=== PATIENT | female | born 1950 | race Caucasian/White ===

== ENCOUNTER → 2017-03-14 | Outpatient (CLI) | payer MEDICARE, OTHER ==
[~2017-03-14] MED LIST: TRAM-42 PO
--- NOTE | 2017-03-16 18:04 | Diagnostic Imaging Report ---
Bilateral screening mammogram 2D views with tomosynthesis. The current study was also evaluated with a Computer Aided Detection (CAD) system. INDICATION: Screening. No current complaints stated on the questionnaire. COMPARISON: 12/11/15 FINDINGS: The breasts are composed of heterogeneously dense parenchyma which may decrease mammographic sensitivity. There is a circumscribed nodule in the right breast slightly lateral location, smaller compared to the prior exams compatible with a cyst. Allowing for technique and positional differences, no suspicious change is seen. IMPRESSION: Dense breasts with no definite change. ACR BI-RADS Category 2: Benign findings. Result letter will be mailed to the patient. Note: At least 10% of breast cancer is not imaged by mammography. Dictated by: Dictated on workstation # [id number]
== END ==
LOC: RAD 14:08
PROVIDERS: ATTEND Obstetrics & Gynecology
DX: Z12.31 Encounter for screening mammogram for malignant neoplasm of breast (principal)
CPT/HCPCS: 77067

== ENCOUNTER → 2018-04-02 | Outpatient (CLI) | payer MEDICARE, OTHER ==
--- NOTE | 2018-04-02 15:54 | Diagnostic Imaging Report ---
INDICATION: Bulge just below the level of the umbilicus. TECHNIQUE: Multiple real time keating scale sonographic images were obtained of the pelvis transabdominally and transvaginally. CORRELATION STUDY: 12/11/2015 FINDINGS: UTERUS/ENDOMETRIUM: Uterus measures 5.1 x 3.1 x 1.9 cm. Endometrial thickness is 2 mm. The uterus and endometrium appearing unremarkable. RIGHT OVARY: Not visualized. LEFT OVARY: Not visualized. No abnormal adnexal mass lesion. No significant free pelvic fluid. IMPRESSION: 1. Unremarkable appearing pelvic ultrasound examination. Nonvisualization of the ovaries may be atrophic, owing to their position and/or obscuration by overlying bowel. Dictated by: Dictated on workstation # [id number]
== END ==
LOC: RAD 13:10
PROVIDERS: ATTEND Obstetrics & Gynecology
DX: K58.9 Irritable bowel syndrome, unspecified (principal); Z80.41 Family history of malignant neoplasm of ovary
CPT/HCPCS: 76830; 76856

== ENCOUNTER → 2018-04-12 | Outpatient (CLI) | payer MEDICARE, OTHER ==
[~2018-04-12] MED LIST changes: +CATHETER FLUSH 10 ML SYR IV PRN; +IOHEXOL 350 MG/ML 100 ML (OMNIPAQUE 350) VIAL IV ONE; +NS 100 ML (IVPB) BAG IV ONE
--- NOTE | 2018-04-12 14:59 | Diagnostic Imaging Report ---
PROCEDURE: CT abdomen and pelvis with and without contrast. TECHNIQUE: Precontrast acquisitions were acquired through the abdomen and pelvis. Multiple contiguous axial images were obtained through the abdomen and pelvis after the administration of intravenous contrast. INDICATION: Left-sided abdominal pain and left abdominal bulge. Comparison is made with prior CT from 05/28/2014. The lung bases are clear. No discrete liver mass is identified. The gallbladder is unremarkable. The pancreas and spleen are unremarkable. No adrenal mass is identified. Left kidney contains a tiny calculus consistent with nonobstructing calculus. No hydronephrosis is seen. The aorta is normal in caliber. Small and large bowel loops are normal caliber. No obstruction is seen. There is no ascites. There is diverticulosis of the sigmoid colon but no evidence of acute diverticulitis. The bladder is unremarkable. No definite abdominal or pelvic lymphadenopathy is identified. IMPRESSION: 1. Uncomplicated diverticulosis. 2. No acute abnormality is detected. Dictated by: Dictated on workstation # [id number]
== END ==
LOC: RAD 14:07
PROVIDERS: ATTEND Obstetrics & Gynecology
DX: K57.30 Diverticulosis of large intestine without perforation or abscess without bleeding (principal); K58.9 Irritable bowel syndrome, unspecified; Z80.41 Family history of malignant neoplasm of ovary
CPT/HCPCS: 74178

== ENCOUNTER → 2018-10-18 | Outpatient (CLI) | payer MEDICARE, OTHER ==
[~2018-10-18] MED LIST changes: -CATHETER FLUSH 10 ML SYR IV PRN; -IOHEXOL 350 MG/ML 100 ML (OMNIPAQUE 350) VIAL IV ONE; -NS 100 ML (IVPB) BAG IV ONE
--- NOTE | 2018-10-18 18:37 | Diagnostic Imaging Report ---
INDICATION: History of stones. COMPARISON: Exam compared with abdominopelvic CT 04/12/2018. FINDINGS: The punctate left upper pole renal calculus at earlier CT is not radiographically apparent; however owing to the overlying stool and its small size, it would not be expected to be visualized. The bowel gas pattern is unremarkable. There are degenerative changes to the spine and hips. No acute abnormality. IMPRESSION: No pathological finding revealed. Dictated by: Dictated on workstation # [id number]
== END ==
LOC: RAD 16:27
PROVIDERS: ATTEND Urology
DX: Z87.442 Personal history of urinary calculi (principal)
CPT/HCPCS: 74018

== ENCOUNTER → 2019-05-27 | Outpatient (CLI) | payer MEDICARE, OTHER ==
--- NOTE | 2019-05-27 09:51 | Diagnostic Imaging Report ---
PROCEDURE: MR imaging of the brain without contrast. TECHNIQUE: Multiplanar, multisequence MR imaging of the brain was performed without contrast. INDICATION: Right eye disturbances. Possible ocular migraine. COMPARISON: MRI brain on 11/17/2008. Findings: No acute ischemia, mass, or hemorrhage. Nonspecific T2/FLAIR hyperintense signal seen in the periventricular and subcortical white matter. The ventricles, cortical sulci, and basilar cisterns are symmetric and unremarkable. The sellar and suprasellar regions have a normal appearance. The brainstem and posterior fossa are unremarkable. The paranasal sinuses demonstrate normal signal characteristics. A small left mastoid effusion is present. The globes and orbits are symmetric and unremarkable. The scalp and calvarium have a normal appearance. Impression: 1. No acute ischemia, mass, or hemorrhage. 2. Nonspecific T2/FLAIR hyperintense signal in the periventricular and subcortical white matter. This most likely represents chronic microvascular disease. Dictated by: Dictated on workstation # [id number]
== END ==
LOC: RAD 08:45
PROVIDERS: ATTEND Internal Medicine
DX: H53.9 Unspecified visual disturbance (principal)
CPT/HCPCS: 70551

== ENCOUNTER → 2019-06-05 | Outpatient (CLI) | payer MEDICARE, OTHER ==
--- NOTE | 2019-06-05 12:58 | Diagnostic Imaging Report ---
INDICATION: Routine screening. COMPARISON: 04/02/2018 and 03/14/2017. TECHNIQUE: 2D and 3D bilateral screening mammography was performed with CAD. FINDINGS: Scattered fibroglandular densities are identified bilaterally. The circumscribed density in the lower right breast appears stable and consistent with benign etiology. No new mass or malignant appearing microcalcifications are seen. The axillae are unremarkable. IMPRESSION: No mammographic features suspicious for malignancy are identified. ACR BI-RADS Category 2: Benign findings. Result letter will be mailed to the patient. Note: At least 10% of breast cancer is not imaged by mammography. Dictated by: Dictated on workstation # [id number]
== END ==
LOC: RAD 09:37
PROVIDERS: ATTEND Obstetrics & Gynecology
DX: Z12.31 Encounter for screening mammogram for malignant neoplasm of breast (principal)
CPT/HCPCS: 77067

== ENCOUNTER → 2020-06-01 | Outpatient (CLI) | payer MEDICARE, OTHER ==
--- NOTE | 2020-06-01 17:52 | Diagnostic Imaging Report ---
INDICATION: Abdominal pain, history of stones. EXAMINATION: Abdominal film obtained at 04:54 p.m. FINDINGS: Abdominal bowel gas pattern is unremarkable with prominent stool throughout the colon. There is diffuse degenerative change throughout the lumbar spine. There are no overt calcifications overlying the renal shadows. IMPRESSION: Prominent stool in the colon. No overt obstruction or ileus. No overt calcifications overlying the renal shadows. Stable appearance compared to the prior study. Dictated by: Dictated on workstation # [id number]
== END ==
LOC: RAD 16:39
PROVIDERS: ATTEND Urology
DX: R10.9 Unspecified abdominal pain (principal); Z87.442 Personal history of urinary calculi
CPT/HCPCS: 74018

== ENCOUNTER → 2020-06-30 | Outpatient (CLI) | payer MEDICARE, OTHER ==
--- NOTE | 2020-06-30 13:09 | Diagnostic Imaging Report ---
INDICATION: Pain and lump in the lateral right breast. COMPARISON: Correlation is made with the diagnostic mammogram from earlier this same day. FINDINGS: Sonographic interrogation of the area of pain and lump in the lateral right breast was performed. There is a simple cyst at the 9 o'clock location 4 cm from the nipple measuring 7 mm x 6 cm x 8 mm. This is the area of pain and lump. No solid masses are seen. No concerning sonographic finding is detected. IMPRESSION: A simple cyst at the 9 o'clock location 4 cm from the nipple corresponds to the area of palpable abnormality and pain. The patient may return to routine annual screening mammography. ACR BI-RADS Category 2: Benign findings. Dictated by: Dictated on workstation # [id number]
--- NOTE | 2020-06-30 15:54 | Diagnostic Imaging Report ---
INDICATION: 69-year-old acentrically postmenopausal female. COMPARISON: 09/06/2013 FINDINGS: AP Spine L1-L4: [BMD (g/cm2): 1.314] [T-Score: 1.0] [Z-Score: 2.6] [BMD Previous: 1.27] [BMD % Change: 1.3] LT Hip Neck: [BMD (g/cm2): 0.933] [T-Score: -0.8] [Z-Score: 0.9] LT Hip Total: [BMD (g/cm2):0.957] [T-Score:-0.4] [Z-Score: 1.1] [BMD Previous: 1.029] [BMD % Change: -7.0] RT Hip Neck: [BMD (g/cm2):0.888] [T-Score:-1.1] [Z-Score:0.6] RT Hip Total: [BMD (g/cm2):0.920] [T-score:-0.7] [Z-Score:0.8] [BMD Previous:0.945] [BMD % Change:-2.6] *Indicates significant change from prior examination based on 95% confidence level. World Health Organization criteria for BMD interpretation classify patients as Normal (T-score at or above -1.0), Osteopenic (T-score between -1.0 and -2.5) or Osteoporotic (T-score at or below -2.5). LIMITATIONS AND MODIFICATION: None. IMPRESSION: 1. Osteopenia. 2. No significant change in bone mineral density since prior examination. 3. Consider follow-up DEXA and 24 months to reassess bone mineral density. Dictated by: Dictated on workstation # [id number]
--- NOTE | 2020-06-30 17:00 | Diagnostic Imaging Report ---
INDICATION: Pain and lump in the lateral right breast. Correlation is made with prior mammogram from 06/05/2019 and 04/02/2018. 2-D and 3-D bilateral diagnostic mammography was performed with CAD. Both breasts are heterogeneously dense, limiting the sensitivity of mammography. BB marker was placed at the area of pain and lump in the lateral right breast. Circumscribed nodule in the outer right breast anterior depth appears stable and consistent with benign etiology. No new masses detected. No malignant-appearing microcalcifications are seen. Axillae are unremarkable. IMPRESSION: BI-RADS 0 No mammographic features suspicious for malignancy are identified. Even so, directed sonographic interrogation of the area of pain and lump in the lateral right breast is recommended and will be performed today. Dictated by: Dictated on workstation # [id number]
== END ==
LOC: RAD 11:00
PROVIDERS: ATTEND Obstetrics & Gynecology
DX: Z12.31 Encounter for screening mammogram for malignant neoplasm of breast (principal); N95.9 Unspecified menopausal and perimenopausal disorder; N60.01 Solitary cyst of right breast; M85.851 Other specified disorders of bone density and structure, right thigh; M85.852 Other specified disorders of bone density and structure, left thigh; Z91.89 Other specified personal risk factors, not elsewhere classified
CPT/HCPCS: 76642; 77066; 77080; G0279; 77062

== ENCOUNTER → 2020-07-21 | Outpatient (CLI) | payer MEDICARE, OTHER | LOC: LABNPT 08:17 | PROVIDERS: ATTEND Internal Medicine | DX: R51.9 Headache, unspecified (principal); Z20.828 Contact with and (suspected) exposure to other viral communicable diseases | CPT/HCPCS: 87635 ==

== ENCOUNTER → 2021-06-30 | Outpatient (CLI) | payer MEDICARE ==
--- NOTE | 2021-06-30 16:07 | Diagnostic Imaging Report ---
INDICATION: HISTORY OF STONES. TECHNIQUE: Two supine view of the abdomen 3:27 PM. CORRELATION STUDY: 06/01/2020. FINDINGS: Large amount of overlying bowel gas and stool obscures detail. There is a small, 4 mm calcification projected over the expected location of the left renal silhouette. Mild stool throughout the colon. No abnormally dilated loops of bowel suggestive of high degree bowel obstruction. There is advanced degenerative changes and mild scoliotic curvature of the lumbar spine. IMPRESSION: Probable small left renal stone. Dictated by: Dictated on workstation # [id number]
== END ==
LOC: RAD 14:50
PROVIDERS: ATTEND Urology
DX: Z87.442 Personal history of urinary calculi (principal)
CPT/HCPCS: 74018

== ENCOUNTER → 2021-10-28 | Outpatient (CLI) | payer MEDICARE, OTHER ==
--- NOTE | 2021-10-28 13:12 | Diagnostic Imaging Report ---
INDICATION: Routine screening. COMPARISON is made with prior mammograms from 06/30/2020 and 06/05/2019. 2-D and 3-D bilateral screening mammography was performed with CAD. Both breasts are heterogeneously dense, limiting the sensitivity of mammography. A circumscribed lesion in the lower outer right breast is stable and was previously shown to represent a cyst. No new mass or malignant-appearing microcalcifications are seen. There are benign calcifications bilaterally. Axillae are unremarkable. IMPRESSION: BI-RADS Category 2 No mammographic features suspicious for malignancy are identified. ACR BI-RADS Category 2: Benign findings. Result letter will be mailed to the patient. Note: At least 10% of breast cancer is not imaged by mammography. Dictated by: Dictated on workstation # [id number]
== END ==
LOC: RAD 11:30
PROVIDERS: ATTEND Nurse Practitioner Family
DX: Z12.31 Encounter for screening mammogram for malignant neoplasm of breast (principal)
CPT/HCPCS: 77063; 77067

== ENCOUNTER → 2023-02-22 | Outpatient (CLI) | payer MEDICARE ==
--- NOTE | 2023-02-22 13:13 | Diagnostic Imaging Report ---
INDICATION: Routine screening. COMPARISON: 10/28/2021 and 06/30/2020. TECHNIQUE: 2D and 3D bilateral screening mammography was performed with CAD. FINDINGS: Both breasts are heterogeneously dense, limiting the sensitivity of mammography. The overall parenchymal pattern is stable. The circumscribed nodule in the lower outer right breast at anterior depth is stable. No new mass or malignant-appearing microcalcifications are seen. There are benign calcifications bilaterally. The axillae are unremarkable. IMPRESSION: No mammographic features suspicious for malignancy are identified. ACR BI-RADS Category 2: Benign findings. Result letter will be mailed to the patient. Note: At least 10% of breast cancer is not imaged by mammography. Dictated by: Dictated on workstation # [id number]
== END ==
LOC: RAD 09:47
PROVIDERS: ATTEND Internal Medicine
DX: Z12.31 Encounter for screening mammogram for malignant neoplasm of breast (principal)
CPT/HCPCS: 77063; 77067